=== PATIENT | male | born 1955 | race Caucasian/White ===

== ENCOUNTER 2023-01-24 14:34 | Emergency (ER) | payer MEDICARE, SELFPAY ==
[2023-01-24 14:52] VITALS: BP 138/86; PULSE 81; RESP 16; TEMP 37.3; O2SAT 97
--- NOTE | 2023-01-24 15:09 | ED.GENADULT ---
HPI - General Adult General Chief complaint: Upper Respiratory Infection Stated complaint: Sore Throat/Cough Time Seen by Provider: 01/24/23 15:09 Source: patient, RN notes reviewed and old records reviewed Mode of arrival: ambulatory Limitations: no limitations History of Present Illness HPI narrative: 67-year-old male presents to the [facility] with complaints of a sore throat, cough. Symptoms started 2 days ago. Patient reports that his was seen a couple of days ago tested negative for flu and COVID, patient is declining testing at this time. Denies taking anything for symptoms Onset (ago): day(s) (2) Related Data Home Medications Medication Instructions Recorded Confirmed amlodipine 10 mg tablet 10 mg PO DAILY 01/24/23 01/24/23 atorvastatin 40 mg tablet 40 mg PO DAILY 01/24/23 01/24/23 fluticasone propionate 50 2 spray intranasal DAILY 01/24/23 01/24/23 mcg/actuation nasal spray,suspension glimepiride 2 mg tablet 2 mg PO DAILY 01/24/23 01/24/23 latanoprost 0.005 % eye drops 1 drp EACH EYE DAILY 01/24/23 01/24/23 losartan 100 mg tablet 100 mg PO DAILY 01/24/23 01/24/23 metformin 500 mg tablet,extended 1,000 mg PO DAILY 01/24/23 01/24/23 release 24 hr Allergies Allergy/AdvReac Type Severity Reaction Status Date / Time codeine Allergy Vomiting Verified 01/24/23 15:01 Review of Systems Review of Systems: All systems reviewed & are unremarkable except as noted in HPI and below Constitutional: Constitutional: Reports no additional constitutional complaints Eyes: Eyes: Reports no additional eye complaints ENT: Reports as per HPI and Reports sore throat Cardiovascular: Cardiovascular: Reports no additional cardiovascular complaints, Denies chest pain and Denies dyspnea Respiratory: Respiratory: Reports as per HPI, Denies chest congestion, Reports cough and Denies dyspnea Gastrointestinal: Gastrointestinal: Reports no additional gastrointestinal complaints, Denies abdominal pain, Denies nausea and Denies vomiting Musculoskeletal: Musculoskeletal: Reports no additional musculoskeletal complaints Integumentary/Breasts: Skin/Breast: Reports system reviewed and no additional complaints, except as docu Neurologic: Reports system reviewed and no additional complaints, except as documented Psychiatric: Psychiatric: Reports no additional psychiatric complaints Allergic/Immunologic: Allergic/Immunologic: Reports no additional allergic/immunologic complaints PMFSH Past Medical History Medical History Diabetes High cholesterol History of high blood pressure Comments At the time of my signature, I reviewed and agree with the nursing past medical, surgical, social, and family history. There is no relevant family history pertinent to the patient complaint. Exam Const: General: cooperative, healthy appearing, comfortable, no acute distress, well developed, alert and well nourished Nutritional Appearance: well nourished Orientation/consciousness: patient oriented x3 Limitations: no limitations HENMT: Head: normal to inspection Ears: hearing grossly normal bilaterally, external ears normal, TM's normal bilaterally, EAC's normal, mastoids normal and no periauricular adenopathy Face/Nose/Sinus: Normal external nose present, Normal nares present, Normal nasal mucous membranes and turbinates present, normal facial exam and face symmetric Face and sinus: normal facial exam and face symmetric Mouth: Yes Normal oral and palatal mucosa present, Yes lip normal and Yes moist mucous membranes Throat: posterior oropharynx normal, tonsils normal, uvula midline and postnasal drainage Eyes: General: appearance normal, both eyes and all related structures Alignment and Position: alignment normal Periorbital: periorbital findings normal Pupils: Equal, round and reactive pupils present EOM: EOMs intact bilaterally Neck: Neck: normal visual inspection, full ROM, no
== END 2023-01-24 15:39 | disposition home or self-care (01) ==
PROVIDERS: Emergency Provider Nurse Practitioner
DX: J06.9 Acute upper respiratory infection, unspecified (principal); E11.9 Type 2 diabetes mellitus without complications; Z79.899 Other long term (current) drug therapy; Z79.84 Long term (current) use of oral hypoglycemic drugs
CPT/HCPCS: 99211; G0463

== ENCOUNTER 2023-03-08 13:26 | Emergency (ER) | payer MEDICARE, SELFPAY ==
[2023-03-08 13:34] VITALS: BP 149/66; PULSE 93; RESP 18; TEMP 36.8; O2SAT 96
--- NOTE | 2023-03-08 13:37 | ED.GENADULT ---
HPI - General Adult General Chief complaint: Upper Respiratory Infection Stated complaint: Congestion/Cough Source: patient, RN notes reviewed and old records reviewed Mode of arrival: ambulatory Limitations: no limitations History of Present Illness HPI narrative: 59-year-old male presents to [facility] with complaint of cough, congestion, and sneezing that started 3 days ago. Patient taking Tylenol and using Flonase with no relief. Patient states might have had a fever last night but did not check. Patient denies any other symptoms. MD complaint: cough/congestion Onset (ago): day(s) (3) Related Data Home Medications Medication Instructions Recorded Confirmed amlodipine 10 mg tablet 10 mg PO DAILY 01/24/23 03/08/23 atorvastatin 40 mg tablet 40 mg PO DAILY 01/24/23 03/08/23 fluticasone propionate 50 2 spray intranasal DAILY 01/24/23 03/08/23 mcg/actuation nasal spray,suspension glimepiride 2 mg tablet 2 mg PO DAILY 01/24/23 03/08/23 latanoprost 0.005 % eye drops 1 drp EACH EYE DAILY 01/24/23 03/08/23 losartan 100 mg tablet 100 mg PO DAILY 01/24/23 03/08/23 metformin 500 mg tablet,extended 1,000 mg PO DAILY 01/24/23 03/08/23 release 24 hr Allergies Allergy/AdvReac Type Severity Reaction Status Date / Time codeine Allergy Vomiting Verified 03/08/23 13:41 Review of Systems Constitutional: Constitutional: Reports no additional constitutional complaints, Denies body ache(s), Denies chills, Denies fatigue, Denies fever(s) and Denies headache(s) Eyes: Eyes: Reports no additional eye complaints and Denies blurry vision ENT: Reports system reviewed and no additional complaints, except as documented, Denies vertigo, Denies dizziness, Denies ear discharge, Denies otalgia, Denies facial pain, Denies headache(s), Reports nasal congestion, Reports nasal discharge, Denies sinus pain, Reports sinus pressure and Denies sore throat Cardiovascular: Cardiovascular: Reports no additional cardiovascular complaints, Denies chest pain, Denies chest pain at rest, Denies rapid heart rate and Denies dyspnea Respiratory: Respiratory: Reports no additional respiratory complaints, Reports chest congestion, Reports cough, Denies pain on inspiration, Denies pain with cough and Denies dyspnea Gastrointestinal: Gastrointestinal: Denies abdominal pain, Denies diarrhea, Denies nausea and Denies vomiting Integumentary/Breasts: Skin/Breast: Denies rash Neurologic: Reports system reviewed and no additional complaints, except as documented, Denies vertigo, Denies dizziness and Denies headache(s) Endocrine: Endocrine: Denies fatigue PMFSH Past Medical History Medical History Diabetes High cholesterol History of high blood pressure Comments At the time of my signature, I reviewed and agree with the nursing past medical, surgical, social, and family history. There is no relevant family history pertinent to the patient complaint. Exam Const: General: cooperative, healthy appearing, no acute distress and well nourished Nutritional Appearance: well nourished Orientation/consciousness: patient oriented x3 Limitations: no limitations HENMT: Head: normal to inspection and normocephalic Ears: external ears normal, TM's normal bilaterally, mastoids normal and Abnormal EAC present Face/Nose/Sinus: normal facial exam Face and sinus: normal facial exam Mouth: Yes Normal oral and palatal mucosa present, Yes oropharynx normal and Yes moist mucous membranes Throat: posterior oropharynx normal, tonsils normal, uvula midline, normal tonsils, no peritonsillar masses, normal posterior oropharynx, postnasal drainage and no uvular edema Eyes: General: appearance normal, both eyes and all related structures Sclera: sclerae normal Pupils: Equal, round and reactive pupils present Resp: Effort & Inspection: normal respiratory effort, able to speak in complete sentences, no audible wheezes, no cough, n
== END 2023-03-08 14:05 | disposition home or self-care (01) ==
PROVIDERS: Emergency Provider Registered Nurse; PCP Family Medicine
DX: J10.1 Influenza due to other identified influenza virus with other respiratory manifestations (principal); Z20.822 Contact with and (suspected) exposure to COVID-19; E11.9 Type 2 diabetes mellitus without complications; E78.00 Pure hypercholesterolemia, unspecified; I10 Essential (primary) hypertension
CPT/HCPCS: 87426; 87804; 99213; G0463

== ENCOUNTER 2023-07-01 08:30 | Emergency (ER) | payer MEDICARE, SELFPAY ==
[2023-07-01 08:36] VITALS: BP 143/71; PULSE 88; RESP 20; TEMP 36.7; O2SAT 97
--- NOTE | 2023-07-01 08:44 | ED.SKABFB ---
HPI - Skin/Abscess/Foreign Bdy General Chief complaint: Skin/Abscess/Foreign Body Stated complaint: Insect Bite/Right Leg Source: patient, RN notes reviewed and old records reviewed Mode of arrival: ambulatory Limitations: no limitations History of Present Illness HPI narrative: 68-[facility]-old male to [facility] for complaint of new lesion to right upper inner thigh that he noticed this morning. Patient endorses that he was outdoors doing yard work yesterday. patient denies any known insect bite. Patient denies pertinent medical history, pain, itching , fever. Patient endorses that it was more inflamed this morning and that he squeezed it; patient endorses small amount of fluid excreted. Related Data Home Medications Medication Instructions Recorded Confirmed amlodipine 10 mg tablet 10 mg PO DAILY 01/24/23 07/01/23 atorvastatin 40 mg tablet 40 mg PO DAILY 01/24/23 07/01/23 fluticasone propionate 50 2 spray intranasal DAILY 01/24/23 07/01/23 mcg/actuation nasal spray,suspension glimepiride 2 mg tablet 2 mg PO DAILY 01/24/23 07/01/23 latanoprost 0.005 % eye drops 1 drp EACH EYE DAILY 01/24/23 07/01/23 losartan 100 mg tablet 100 mg PO DAILY 01/24/23 07/01/23 metformin 500 mg tablet,extended 1,000 mg PO DAILY 01/24/23 07/01/23 release 24 hr Allergies Allergy/AdvReac Type Severity Reaction Status Date / Time codeine Allergy Vomiting Verified 03/08/23 13:41 Review of Systems Review of Systems: All systems reviewed & are unremarkable except as noted in HPI and below Constitutional: Constitutional: Reports no additional constitutional complaints Eyes: Eyes: Reports no additional eye complaints ENT: Reports system reviewed and no additional complaints, except as documented Cardiovascular: Cardiovascular: Reports no additional cardiovascular complaints, Denies chest pain and Denies dyspnea Respiratory: Respiratory: Reports no additional respiratory complaints, Denies cough and Denies dyspnea Musculoskeletal: Musculoskeletal: Reports no additional musculoskeletal complaints Integumentary/Breasts: Skin/Breast: Denies pruritus, Reports erythema and Reports skin swelling Comments: patient endorses new lesion to right inner upper thigh Neurologic: Reports system reviewed and no additional complaints, except as documented Psychiatric: Psychiatric: Reports no additional psychiatric complaints PMFSH Past Medical History Medical History Diabetes High cholesterol History of high blood pressure Comments At the time of my signature, I reviewed and agree with the nursing past medical, surgical, social, and family history. There is no relevant family history pertinent to the patient complaint. Exam Const: General: cooperative, healthy appearing, comfortable, no acute distress, alert and well nourished Nutritional Appearance: well nourished Orientation/consciousness: patient oriented x3 Limitations: no limitations HENMT: Head: normal to inspection Ears: external ears normal Face/Nose/Sinus: Normal external nose present, Normal nares present, normal facial exam, No erythema and No edema Face and sinus: normal facial exam, no erythema and no edema Mouth: Yes Normal oral and palatal mucosa present Eyes: General: appearance normal, both eyes and all related structures Neck: Neck: normal visual inspection, full ROM and no meningeal signs Lymphatic: no lymphadenopathy noted and no lymphedema noted Chest: Chest palpation & inspection: normal inspection of the chest Resp: Effort & Inspection: normal respiratory effort and able to speak in complete sentences Auscultation: clear to auscultation bilaterally Cardio: Jugular venous distension: no JVD Rate: regular rate Rhythm: regular rhythm Back/Spine/Pelvis: Cervical Spine: cervical ROM normal Skin: General skin exam: wounds noted Lesions: lesion noted (right upper inner thigh) Trauma: no l
== END 2023-07-01 09:13 | disposition home or self-care (01) ==
PROVIDERS: Emergency Provider Nurse Practitioner Family; PCP Family Medicine
DX: S70.361A Insect bite (nonvenomous), right thigh, initial encounter (principal); W57.XXXA Bitten or stung by nonvenomous insect and other nonvenomous arthropods, initial encounter; E11.9 Type 2 diabetes mellitus without complications; Z79.84 Long term (current) use of oral hypoglycemic drugs; E78.00 Pure hypercholesterolemia, unspecified; I10 Essential (primary) hypertension
CPT/HCPCS: 99213; G0463

== ENCOUNTER 2024-05-18 08:45 | Emergency (ER) | payer MEDICARE, SELFPAY ==
[2024-05-18 08:54] VITALS: BP 154/61; PULSE 72; RESP 20; TEMP 36.5; O2SAT 96
--- OUTSIDE RECORDS SUMMARY | 2024-05-18 09:10 | XMS_ITS | Patient Health Record ---
Author Organization [facility] Address [address] [place], [place] [address] Care Team Providers Care Pet Handler Name Role Phone SHANNAN MERIDA Unavailable [phone] Maurice Sykes Unavailable Unavailable Reason For Referral No Information Medications Medication SIG (Take, Route, Frequency, Duration) Notes Start Date End Date Status Losartan Potassium 100 MG Oral Tablet ORAL losartan potassium 100 MG Oral TabletOriginal Medicationlosartan potassium 100 MG Oral Tablet *Reorder from [facility] for eRx and Interaction Alerts* 10/01/2014 Active amlodipine 10 MG Oral Tablet ORAL amlodipine 10 MG Oral TabletOriginal Medicationamlodipine 10 MG Oral Tablet *Reorder from [facility] for eRx and Interaction Alerts* 10/01/2014 Active 24 HR metformin hydrochloride 750 MG Extended Release Oral Tablet ORAL 24 HR metformin hydrochloride 750 MG Extended Release Oral TabletOriginal [id number] HR metformin hydrochloride 750 MG Extended Release Oral Tablet *Reorder from [facility] for eRx and Interaction Alerts* 10/01/2014 Active Plan Of Treatment No Information Insurance Providers Payer Name Payer Address Payer Phone Subscriber Number Group Number Insured Name Patient Relationship to Insured Coverage Start Date Coverage End Date [facility] ATTN CLAIMS [address] [place] [address] [id number] YARED CARPENTER Self - patient is the insured
--- OUTSIDE RECORDS SUMMARY | 2024-05-18 09:10 | XMS_ITS | Encounter Summary ---
Author Organization [facility] Address [address] [place] [address] Phone Care Team Providers Care Sand Cutter Operator Name Role Phone Maurice Sykes MD Primary Care Provider [phone] Tess Keith MD Unavailable Nicholas Angeles DO Unavailable [phone] Lorena Castellon MD Primary Care Provide r Maurice Griffith MD Unavailable [phone] Bruno Holloway MD Unavailable Sander Dexter MD Unavailable [phone] Encounter Details Date Type Department Care Team (Latest Contact Info) Description 07/30/2019 Orders Only [facility] Scanning, Provider Social History Tobacco Use Types Packs/Day Years Used Date Smoking Tobacco: Former Smokeless Tobacco: Never Alcohol Use Standard Drinks/Week Comments Yes 0 (1 standard drink = 0.6 oz pur e alcohol) 2 [employer]/7up/daily PHQ-2 Answer Date Recorded PHQ-2 Score 0 10/02/2018 Sex and Gender Information Value Date Recorded Sex Assigned at Not on file Legal Sex Male 2:14 PM BUSINESS LIBRARIAN Gender Identity Male 07/05/2022 1:54 PM CDT Sexual Orientation Straight 08/19/2019 11 :27 AM CDT documented as of this encounter Plan of Treatment Not on file documented as of this encounter Procedures Procedure Name Priority Date/Time Associated Diagnosis Comments SCAN - LABS 07/30/2019 documented in this encounter Results * SCAN - LABS (07/30/2019) us Provider Scanning Final Result documented in this encounter Visit Diagnoses Not on filedocumented in this encounter Additional Health Concerns Infection Onset Date Last Indicated Resolved Time COVID: Suspected 02/20/2021 02/20/2021 02/20/2021 8:40 AM BUSINESS LIBRARIAN COVID19 02/20/2021 02/20/2021 03/02/2021 3:05 AM BUSINESS LIBRARIAN COVID: Suspected 02/23/2022 02/23/2022 02/23/2022 11:23 AM BUSINESS LIBRARIAN COVID: Suspected 02/24/2022 02/24/2022 02/24/2022 8:48 AM BUSINESS LIBRARIAN COVID19 02/24/2022 02/24/2022 03/06/2022 3:05 AM BUSINESS LIBRARIAN COVID: Recovered Comment:Added based on recent COVID infection. 03/06/2022 03/15/2022 06/04/2022 3:05 AM C DT documented as of this encounter Care Teams Sand Cutter Operator Relationship Specialty Start Date End Date Maurice Sykes MD PCP - General 05/11/16 07/11/21 Lorena Castellon MD 2 [facility] [address] [address] PCP - General Family Medicine 07/12/21 Tess Keith MD Consulting Physician Medical Oncology 08/05/17 1 Nicholas Angeles DO Surgeon Otolaryngology 08/05/17 01/01/21 Maurice Griffith MD [address] [place] [address] Consulting Physician Ophthalmology 09/06/21 02/20/22 Bruno Holloway MD [address] [place] [address] Surgeon Anesthesiology 09/06/21 Sander Dexter MD [address] [place] [address] Consulting Physician Medical Oncology 02/26/23 documented as of this encounter
--- OUTSIDE RECORDS SUMMARY | 2024-05-18 09:10 | XMS_ITS | Encounter Summary ---
Author Organization [facility] Address [address] [place] [address] Phone Care Team Providers Care Bank Reconciliator Name Role Phone Maurice Sykes MD Primary Care Provider [phone] Tess Keith MD Unavailable Nicholas Angeles DO Unavailable Lorena Castellon MD Primary Care Provide r Maurice Griffith MD Unavailable [phone] Bruno Holloway MD Unavailable Sander Dexter MD Unavailable Encounter Details Date Type Department Care Team (Late st Contact Info) Description 05/24/2017 [facility] Only [facility] ProviderMonroe MD [address] [place] [address] Social History Tobacco Use Types Packs/Day Years Used Date Smoking Tobacco: Former Smokeless Tobacco: Never Alcohol Use Standard Drinks/Week Comments Yes 0 (1 standard drink = 0.6 oz pur e alcohol) Sex and Gender Information Value Date Recorded Sex Assigned at Not on file Legal Sex Male 2:14 PM PROCEDURE ANALYST Gender Identity Male 07/05/2022 1:54 PM CDT Sexual Orientation Straight 08/19/2019 11 :27 AM CDT documented as of this encounter Plan of Treatment Not on file documented as of this encounter Procedures Procedure Name Priority Date/Time Associated Diagnosis Comments DISCHARGE LABORATORY CUMULATIVE REPORT 05/24/2017 12:00 AM CDT documented in this encounter Results * DISCHARGE LABORATORY CUMULATIVE REPORT (05/24/2017 12:00 AM CDT) Narrative 05/24/2017 12:00 AM CDT Ordered by an unspecified provider. us Historical Provider LAB BLOOD ORDERABLES Molly l Result documented in this encounter Visit Diagnoses Not on filedocumented in this encounter Additional Health Concerns Infection Onset Date Last Indicated Resolved Time COVID: Suspected 02/20/2021 02/20/2021 02/20/2021 8:40 AM PROCEDURE ANALYST COVID19 02/20/2021 02/20/2021 03/02/2021 3:05 AM PROCEDURE ANALYST COVID: Suspected 02/23/2022 02/23/2022 02/23/2022 11:23 AM PROCEDURE ANALYST COVID: Suspected 02/24/2022 02/24/2022 02/24/2022 8:48 AM PROCEDURE ANALYST COVID19 02/24/2022 02/24/2022 03/06/2022 3:05 AM PROCEDURE ANALYST COVID: Recovered Comment:Added based on recent COVID infection. 03/06/2022 03/15/2022 06/04/2022 3:05 AM C DT documented as of this encounter Care Teams Bank Reconciliator Relationship Specialty Start Date End Date Maurice Sykes MD PCP - General 05/11/16 07/11/21 Lorena Castellon MD 2 [facility] [address] [address] PCP - General Family Medicine 07/12/21 Tess Keith MD Consulting Physician Medical Oncology 08/05/17 1 Nicholas Angeles DO Surgeon Otolaryngology 08/05/17 01/01/21 Maurice Griffith MD [address] [place] [address] Consulting Physician Ophthalmology 09/06/21 02/20/22 Bruno Holloway MD [address] [place] [address] Surgeon Anesthesiology 09/06/21 Sander Dexter MD [address] [place] [address] Consulting Physician Medical Oncology 02/26/23 documented as of this encounter
--- OUTSIDE RECORDS SUMMARY | 2024-05-18 09:10 | XMS_ITS | Encounter Summary ---
Author Organization [facility] Address [address] [place] [address] Care Team Providers Care Proofer Name Role Phone Lorena Castellon MD Primary Care Provide r Maurice Griffith MD Unavailable [phone] Bruno Holloway MD Unavailable [phone] Sander Dexter MD Unavailable [phone] Encounter Details Date Type Department Care Team (Late st Contact Info) Description 10/12/2021 Telephone [facility] [address] [place] [address] Es Merchant, RT Social History Tobacco Use Types Packs/Day Years Used Date Smoking Tobacco: Former Smokeless Tobacco: Never Alcohol Use Standard Drinks/Week Comments Yes 0 (1 standard drink = 0.6 oz pur e alcohol) 2 [employer]'s/7up/daily AUDIT-C Answer Date Recorded Q1: How often do you have a drink containing alcohol? 4 or more times a week 02/16/2021 Q2: How many drinks containi ng alcohol do you have on a typical day when you are drinking? 1 or 2 Frequency of Binge Drinking Not on file 07/2021 PHQ-2 Answer Date Recorded PHQ-2 Total Score (If total score is 3 or more points, staff should administer the PHQ-9) 0 09/06/2021 Sex and Gender Information Value Date Recorded Sex Assigned at Not on file Legal Sex Male 2:14 PM END TRIMMER Gender Identity Male 07/05/2022 1:54 PM CDT Sexual Orientation Straight 08/19/2019 11 :27 AM CDT documented as of this encounter Plan of Treatment Not on file documented as of this encounter Visit Diagnoses Not on filedocumented in this encounter Additional Health Concerns Infection Onset Date Last Indicated Resolved Time COVID: Suspected 02/23/2022 02/23/2022 02/23/2022 11:23 AM END TRIMMER COVID: Suspected 02/24/2022 02/24/2022 02/24/2022 8:48 AM END TRIMMER COVID19 02/24/2022 02/24/2022 03/06/2022 3:05 AM END TRIMMER COVID: Recovered Comment:Added based on recent COVID infection. 03/06/2022 03/15/2022 06/04/2022 3:05 AM C DT documented as of this encounter Care Teams Proofer Relationship Specialty Start Date End Date Lorena Castellon MD [address] [place] [address] [place] [address] PCP - General Family Medicine 07/12/21 Maurice Griffith MD 2 [facility] [place] [address] Consulting Physician Ophthalmology 09/06/21 02/20/22 Bruno Holloway MD [address] [place] [address] Surgeon Anesthesiology 09/06/21 Sander Dexter MD [address] [place] [address] Consulting Physician Medical Oncology 02/26/23 documented as of this encounter
--- OUTSIDE RECORDS SUMMARY | 2024-05-18 09:10 | XMS_ITS | Encounter Summary ---
Author Organization [facility] Healthcare Address [address] [place] [address] Care Team Providers Care Hollow Core Door Frame Assembler Name Role Phone Lorena Castellon MD Primary Care Provide r Bruno Holloway MD Unavailable Sander Dexter MD Unavailable [phone] Reason for Visit * Reason Onset Date Comments Test Results 04/22/2024 Encounter Details Date Type Department Care Team (Late st Contact Info) Description 04/22/2024 Results Follow-Up [facility] Medical [facility] Primary Care at [address] [address] Lorena Castellon MD [address] [place] [address] Social History Tobacco Use Types Packs/Day Years Used Date Smoking Tobacco: Former Smokeless Tobacco: Never Alcohol Use Standard Drinks/Week Comments Yes 0 (1 standard drink = 0.6 oz pur e alcohol) 2 Se[employer]'s/7up/daily AUDIT-C Answer Date Recorded Q1: How often do you have a drink containing alcohol? Never 05/17/2023 Q2: How many drinks containi ng alcohol do you have on a typical day when you are drinking? Patient does not drink Q3: How often do you have si x or more drinks on one occasion? Never 05/17/2023 PHQ-2 Answer Date Recorded PHQ-2 Total Score (If total score is 3 or more points, staff should administer the PHQ-9) 0 08/27/2023 Sex and Gender Information Value Date Recorded Sex Assigned at Not on file Legal Sex Male 2:14 PM QUALIFICATION ENGINEER Gender Identity Male 07/05/2022 1:54 PM CDT Sexual Orientation Straight 08/19/2019 11 :27 AM CDT documented as of this encounter Miscellaneous Notes * Telephone Encounter - Kristal Claudio - 04/22/2024 12:18 PM CDT Call Back Caller???s Concern: Pt calling back as he missed call from office Relayed message below from Dr Parra and pt had no further questions Does message need to be routed? No * Telephone Encounter - Luciana Desai MA - 04/22/2024 9:43 AM CDT Tried calling patient to inform him of results, if patient returns call please relay providers message. documented in this encounter Plan of Treatment Not on file documented as of this encounter Visit Diagnoses Not on filedocumented in this encounter Care Teams Hollow Core Door Frame Assembler Relationship Specialty Start Date End Date Lorena Castellon MD [address] [place] [address] PCP - General Family Medicine 07/12/21 Bruno Holloway MD [address] [place] [address] Surgeon Anesthesiology 09/06/21 Sander Dexter MD [address] [place] [address] Consulting Physician Medical Oncology 02/26/23 documented as of this encounter
--- OUTSIDE RECORDS SUMMARY | 2024-05-18 09:10 | XMS_ITS | Clinical Summary ---
Author Organization [facility] Address [address] [place] [id number] Care Team Providers Care Director Phone Name Role Phone Lorena Castellon MD Primary Care Provide r Allergies Active Allergy Reactions Criticality Noted Date Comments Codeine Nausea Only,Vomiting 06/20/2023 Reaction: Nausea, Vomiting, Medications atorvastatin (LIPITOR) 40 MG tablet Take 40 mg by mouth daily. 03/05/2023 Active metFORMIN ER (GLUCOPHAGE-XR) 500 MG 24 hr tablet Take 1,000 mg by mouth 2 (two) times daily. Active latanoprost (XALATAN) 0.005 % ophthalmic solution Place 1 drop into both eyes nightly. 05/13/2023 Active glimepiride (AMARYL) 4 MG tablet Take 4 mg by mouth daily. 05/17/2023 Active Problems No known active problems Social History Tobacco Use Types Packs/Day Years Used Date Smoking Tobacco: Never Assessed Sex and Gender Information Value Date Recorded Sex Assigned at Not on file Legal Sex Male 8:01 AM CDT Gender Identity Not on file Sexual Orientation Not on file Plan of Treatment Health Maintenance Due Date Last Done Comments Colorectal Cancer Screening Colonoscopy (10 Years) 1954 Kidney Health Evaluation 1954 Lipid Panel 1954 Diabetes: Retinopathy Eye Exam 1972 Hepatitis C 1972 Annual Medicare Wellness Visit 2019 COVID-19 Vaccine ( season) 2023 12/11/2020, 05/10/2020, 04/12/2020 Hemoglobin A1C 02/12/2024 08/12/2023, 04/12, 11/26/2022, Additional history exists DTaP, Tdap and Td Vaccines (3 - Td or Tdap) 05/25/2027 05/24/2017, 11/02/2008 RSV Immunization or 60+ Years (1 - 1-dose 75+ series) 2029 Zoster Vaccines Completed 12/22/2018, 08/11, 05/10/2015, Additional history exists Pneumococcal Vaccine: 65+ Years Completed 09/10/2022, 05/05/2015, 01/17/2012 Meningococcal B Vaccine Aged Out No l onger eligible based on patient's age to complete this topic Meningococcal Vaccine Aged Out No epifanio corey eligible based on patient's age to complete this topic RSV Immunizations Under 20 Months Aged Out No longer eligible based on patient's age to complete this topic Insurance [employer]ET[employer] Care Teams Director Phone Relationship Specialty Start Date End Date Lorena Castellon MD [address] [address] PCP - General FAMILY PRACTICE 06/20/23
--- OUTSIDE RECORDS SUMMARY | 2024-05-18 09:10 | XMS_ITS | Encounter Summary ---
Author Organization [facility] Address [address] [place] [address] Phone Care Team Providers Care Enterprise Systems Engineer Name Role Phone Maurice Sykes MD Primary Care Provider [phone] Tess Keith MD Unavailable Nicholas Angeles DO Unavailable Lorena Castellon MD Primary Care Provide r Maurice Griffith MD Unavailable Bruno Holloway MD Unavailable Sander Dexter MD Unavailable [phone] Encounter Details Date Type Department Care Team (Late st Contact Info) Description 02/28/2017 Orders Only [facility] ProviderMonroe MD [address] [place] [address] Social History Tobacco Use Types Packs/Day Years Used Date Smoking Tobacco: Never Alcohol Use Standard Drinks/Week Comments Yes 0 (1 standard drink = 0.6 oz pur e alcohol) Sex and Gender Information Value Date Recorded Sex Assigned at Not on file Legal Sex Male 2:14 PM PUPPET MAKER Gender Identity Male 07/05/2022 1:54 PM CDT Sexual Orientation Straight 08/19/2019 11 :27 AM CDT documented as of this encounter Plan of Treatment Not on file documented as of this encounter Procedures Procedure Name Priority Date/Time Associated Diagnosis Comments DISCHARGE LABORATORY CUMULATIVE REPORT 02/28/2017 12:00 AM PUPPET MAKER documented in this encounter Results * DISCHARGE LABORATORY CUMULATIVE REPORT (02/28/2017 12:00 AM PUPPET MAKER) Narrative 02/28/2017 12:00 AM PUPPET MAKER Ordered by an unspecified provider. us Historical Provider LAB BLOOD ORDERABLES Molly l Result documented in this encounter Visit Diagnoses Not on filedocumented in this encounter Additional Health Concerns Infection Onset Date Last Indicated Resolved Time COVID: Suspected 02/20/2021 02/20/2021 02/20/2021 8:40 AM PUPPET MAKER COVID19 02/20/2021 02/20/2021 03/02/2021 3:05 AM PUPPET MAKER COVID: Suspected 02/23/2022 02/23/2022 02/23/2022 11:23 AM PUPPET MAKER COVID: Suspected 02/24/2022 02/24/2022 02/24/2022 8:48 AM PUPPET MAKER COVID19 02/24/2022 02/24/2022 03/06/2022 3:05 AM PUPPET MAKER COVID: Recovered Comment:Added based on recent COVID infection. 03/06/2022 03/15/2022 06/04/2022 3:05 AM C DT documented as of this encounter Care Teams Enterprise Systems Engineer Relationship Specialty Start Date End Date Maurice Sykes MD PCP - General 05/11/16 07/11/21 Lorena Castellon MD [address] [facility] [address] [place] [address] PCP - General Family Medicine 07/12/21 Tess Keith MD Consulting Physician Medical Oncology 08/05/17 1 Nicholas Angeles DO Surgeon Otolaryngology 08/05/17 01/01/21 Maurice Griffith MD [address] [facility] [place] [address] Consulting Physician Ophthalmology 09/06/21 02/20/22 Bruno Holloway MD [address] [place] [address] Surgeon Anesthesiology 09/06/21 Sander Dexter MD [address] [place] [address] Consulting Physician Medical Oncology 02/26/23 documented as of this encounter
--- OUTSIDE RECORDS SUMMARY | 2024-05-18 09:10 | XMS_ITS | Encounter Summary ---
Author Organization [facility] Address [address] [place] [address] Phone Care Team Providers Care Tsa Screener Name Role Phone Maurice Sykes MD Primary Care Provider [phone] Tess Keith MD Unavailable Nicholas Angeles DO Unavailable Lorena Castellon MD Primary Care Provide r Maurice Griffith MD Unavailable Bruno Holloway MD Unavailable Sander Dexter MD Unavailable [phone] Encounter Details Date Type Department Care Team (Latest Contact Info) Description 08/03/2019 Orders Only [facility] Scanning, Provider [...] on file Legal Sex Male 2:14 PM COMMERCIAL AIRPLANE PILOT Gender Identity Male 07/05/2022 1:54 PM CDT Sexual Orientation Straight 08/19/2019 11 :27 AM CDT documented as of this encounter Plan of Treatment Not on file documented as of this encounter Procedures Procedure Name Priority Date/Time Associated Diagnosis Comments SCAN - LABS 08/03/2019 documented in this encounter Results * SCAN - LABS (08/03/2019) us Provider Scanning Final Result documented in this encounter Visit Diagnoses Not on filedocumented in this encounter Additional Health Concerns Infection Onset Date Last Indicated Resolved Time COVID: Suspected 02/20/2021 02/20/2021 02/20/2021 8:40 AM COMMERCIAL AIRPLANE PILOT COVID19 02/20/2021 02/20/2021 03/02/2021 3:05 AM COMMERCIAL AIRPLANE PILOT COVID: Suspected 02/23/2022 02/23/2022 02/23/2022 11:23 AM COMMERCIAL AIRPLANE PILOT COVID: Suspected 02/24/2022 02/24/2022 02/24/2022 8:48 AM COMMERCIAL AIRPLANE PILOT COVID19 02/24/2022 02/24/2022 03/06/2022 3:05 AM COMMERCIAL AIRPLANE PILOT COVID: Recovered Comment:Added based on recent COVID infection. 03/06/2022 03/15/2022 06/04/2022 3:05 AM C DT documented as of this encounter Care Teams Tsa Screener Relationship Specialty Start Date End Date Maurice Sykes MD PCP - General 05/11/16 07/11/21 Lorena Castellon MD 2 [facility] [address] [address] PCP - General Family Medicine 07/12/21 Tess Keith MD Consulting Physician Medical Oncology 08/05/17 1 Nicholas Angeles DO Surgeon Otolaryngology 08/05/17 01/01/21 Maurice Griffith MD [address] [facility] [place] [address] Consulting Physician Ophthalmology 09/06/21 02/20/22 Bruno Holloway MD [address] [place] [address] Surgeon Anesthesiology 09/06/21 Sander Dexter MD [address] [place] [address] Consulting Physician Medical Oncology 02/26/23 documented as of this encounter
--- OUTSIDE RECORDS SUMMARY | 2024-05-18 09:10 | XMS_ITS | Encounter Summary ---
Author Organization [facility] Healthcare Address [address] [place] [address] Care Team Providers Care Information Security Consultant Name Role Phone Lorena Castellon MD Primary Care Provide r Bruno Holloway MD Unavailable [phone] Sander Dexter MD Unavailable [phone] Reason for Visit * Reason Onset Date Comments Medical Question/Miscellaneous 08/28/2023 Encounter Details Date Type Department Care Team (Late st Contact Info) Description 08/28/2023 Telephone [facility] Medical Group Primary Care at [address] [address] Lorena Castellon MD [address] [place] [address] [address] [place] [address] Medical Question/Miscellaneous Social History Tobacco Use Types Packs/Day Years [...] on file Legal Sex Male 2:14 PM LENO SEWER Gender Identity Male 07/05/2022 1:54 PM CDT Sexual Orientation Straight 08/19/2019 11 :27 AM CDT documented as of this encounter Plan of Treatment Not on file documented as of this encounter Visit Diagnoses Not on filedocumented in this encounter Care Teams Information Security Consultant Relationship Specialty Start Date End Date Lorena Castellon MD [address] [facility] [address] PCP - General Family Medicine 07/12/21 Bruno Holloway MD [address] [place] [address] Surgeon Anesthesiology 09/06/21 Sander Dexter MD [address] [place] [address] Consulting Physician Medical Oncology 02/26/23 documented as of this encounter
--- OUTSIDE RECORDS SUMMARY | 2024-05-18 09:11 | XMS_ITS | Encounter Summary ---
Author Organization [facility] Address [address] [place] [address] Phone Care Team Providers Care Casual Shoe Inspector Name Role Phone Maurice Sykes MD Primary Care Provider [phone] Tess Keith MD Unavailable Nicholas Angeles DO Unavailable Lorena Castellon MD Primary Care Provide r Maurice Griffith MD Unavailable [phone] Bruno Holloway MD Unavailable [phone] Sander Dexter MD Unavailable Encounter Details Date Type Department Care Team (Late st Contact Info) Description 04/08/2017 Orders Only [facility] ProviderMonroe MD [address] [place] [address] Social History Tobacco Use Types Packs/Day Years Used Date Smoking Tobacco: Former Smokeless Tobacco: Never Alcohol Use Standard Drinks/Week Comments Yes 0 (1 standard drink = 0.6 oz pur e alcohol) Sex and Gender Information Value Date Recorded Sex Assigned at Not on file Legal Sex Male 2:14 PM ORAL PATHOLOGIST Gender Identity Male 07/05/2022 1:54 PM CDT Sexual Orientation Straight 08/19/2019 11 :27 AM CDT documented as of this encounter Plan of Treatment Not on file documented as of this encounter Procedures Procedure Name Priority Date/Time Associated Diagnosis Comments SURGICAL PATHOLOGY 04/08/2017 12 :00 AM ORAL PATHOLOGIST documented in this encounter Results * SURGICAL PATHOLOGY (04/08/2017 12:00 AM ORAL PATHOLOGIST) Narrative 04/08/2017 12:00 AM ORAL PATHOLOGIST Ordered by an unspecified provider. us Historical Provider LAB PATHOLOGY ORDERABLES Final Result documented in this encounter Visit Diagnoses Not on filedocumented in this encounter Additional Health Concerns Infection Onset Date Last Indicated Resolved Time COVID: Suspected 02/20/2021 02/20/2021 02/20/2021 8:40 AM ORAL PATHOLOGIST COVID19 02/20/2021 02/20/2021 03/02/2021 3:05 AM ORAL PATHOLOGIST COVID: Suspected 02/23/2022 02/23/2022 02/23/2022 11:23 AM ORAL PATHOLOGIST COVID: Suspected 02/24/2022 02/24/2022 02/24/2022 8:48 AM ORAL PATHOLOGIST COVID19 02/24/2022 02/24/2022 03/06/2022 3:05 AM ORAL PATHOLOGIST COVID: Recovered Comment:Added based on recent COVID infection. 03/06/2022 03/15/2022 06/04/2022 3:05 AM C DT documented as of this encounter Care Teams Casual Shoe Inspector Relationship Specialty Start Date End Date Maurice Sykes MD PCP - General 05/11/16 07/11/21 Lorena Castellon MD [address] [facility] [address] [place] [address] PCP - General Family Medicine 07/12/21 Tess Keith MD Consulting Physician Medical Oncology 08/05/17 1 Nicholas Angeles DO Surgeon Otolaryngology 08/05/17 01/01/21 Maurice Griffith MD [address] [facility] [place] [address] Consulting Physician Ophthalmology 09/06/21 02/20/22 Bruno Holloway MD [address] [facility] [place] [address] Surgeon Anesthesiology 09/06/21 Sander Dexter MD [address] [place] [address] Consulting Physician Medical Oncology 02/26/23 documented as of this encounter
--- OUTSIDE RECORDS SUMMARY | 2024-05-18 09:11 | XMS_ITS | Clinical Summary ---
Author Organization [facility] A Address [address] [place] [address] Care Team Providers Care Warhead Maintenance Specialist Name Role Phone Lorena Castellon MD Primary Care Provide r Bruno Holloway MD Unavailable [phone] Sander Dexter MD Unavailable [phone] Allergies Active Allergy Reactions Criticality Noted Date Comments Codeine Nausea only,Vomiting Reaction: Nausea, Vomiting, Medications aspirin 81 mg tabletIndicatio ns:stop 5 days before surgery Take 1 tablet (81 mg total) by mouth daily Active latanoprost (XALATAN) 0.005 % ophthalmic solution INSTILL 1 DROP IN BOTH EYES AT BEDTIME 05/31/2020 Active atorvastatin (LIPITOR) 40 mg tablet TAKE 1 TABLET BY MOUTH EVERY DAY 100 tablet 1 08/27/2023 Active blood-glucose meter kitIndications: Type 2 diabetes mellitus without complication, without long-term current use of insulin ([facility]) Use meter to check glucose sugar daily. E 11.9 1 kit 11/18/2023 Active blood glucose diagnostic stripIndication s:Type 2 diabetes mellitus without complication, without long-term current use of insulin (HCC) Use to test glucose daily E11.9 100 strip 2 11/18/2023 Active lancets misc 100 each by other route as directed 100 each 2 12/17/2023 Active metFORMIN XR (GLUCOPHAGE XR) 500 mg 24 hr tablet TAKE 2 TABLETS BY MOUTH TWICE A DAY 360 tablet 1 12/19/2023 Active Farxiga 5 mg tabletIndicatio ns:Type 2 diabetes mellitus without complication, without long-term current use of insulin (HCC) TAKE 1 TABLET (5 MG TOTAL) BY MOUTH DAILY. 90 tablet 1 02/13/2024 Active losartan (COZAAR) 100 mg tablet TAKE 1 TABLET BY MOUTH EVERY DAY 90 tablet 1 03/03/2024 Active glimepiride (AMARYL) 4 mg tabletIndicatio ns:Type 2 diabetes mellitus without complication, without long-term current use of insulin (HCC) TAKE 1 TABLET BY MOUTH DAILY BEFORE BREAKFAST. 90 tablet 1 03/03/2024 Active amLODIPine (NORVASC) 10 mg tablet TAKE 1 TABLET BY MOUTH EVERY DAY 90 tablet 1 04/13/2024 Active gabapentin (NEURONTIN) 100 mg capsule Take 1 capsule (100 mg total) by mouth 3 (three) times a day 270 capsule 4 05/06/2024 05/07/19 Active Active Problems Problem Noted Date Diagnosed Date Type 2 diabetes mellitus with hyperglycemia 05/2023 Rhinorrhea 12/12/2022 Assessment & Plan (12/12/2022 8:21 AM CDT): New concern Likely allergy induced Recommend zyrtec and flonase F/u prn Tingling of both feet 06/14/2022 Assessment & Plan (05/06/2024 2:11 PM CDT): chronic Stable Start gabapentin 100mg daily and can go up to 3x/day F/u in 6 months Assessment & Plan (06/14/2022 8:27 AM CDT): Worsening B12, tsh, iron panel EMG/NCS Based on results will consider pregabalin at next office visit F/u at annual Encounter for wellness examination 09/06/2021 Assessment & Plan (05/06/2024 1:11 PM CDT): Labs reviewed and discussed Recommend staying up to date on vaccines Colonoscopy: up to date, due 2025 F/u in 1 year for annual Assessment & Plan (09/10/2022 8:29 AM CDT): Labs reviewed and discussed Pcv20: given Colonoscopy: up to date F/u in 1 year for annual Assessment & Plan (09/06/2021 12:14 PM CDT): Ordered CBC, cmp, lipid, hgb a1c, albumin cr urine, TSH, and free t4 Colonoscopy: up to date F/u in 1 year for annual Carpal tunnel syndrome of left wrist 01/18/2021 Overview (01/18/2021): Added automatically from request for surgery [id number] 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 01/19/20 21 Overview (01/18/2021): Added automatically from request for surgery [id number] Carpal tunnel syndrome of right wrist 11/28/2020 Overview (11/28/2020): Added automatically from request for surgery [id number] Entrapment of right ulnar nerve at wrist 021 Overview (11/28/2020): Added automatically from request for surgery [id number] Cubital tunnel syndrome on right 11/28/2020 Overview (11/28/2020): Added automatically from request for surgery [id number] 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, right 11/28 Overview (11/28/2020): Added automatically from request for surgery [id number] History of kidney stones 09/05/2020 History of colonic polyps 08/11/2020 Overview (08/11/2020): Added automatically from request for surgery [id number] MGUS (monoclonal gammopathy of unknown significa nce) 01/29/2019 Assessment & Plan (05/04/2024 3:00 PM CDT): Follows with hematology for management Assessment & Plan (09/05/2022 9:33 AM CDT): Follows with hematology for management Assessment & Plan (09/06/2021 12:11 PM CDT): Follows with hematology for management Elevated PSA 06/27/2018 Overview (06/27/2018): Added automatically from request for surgery [id number] Assessment & Plan (09/06/2021 12:10 PM CDT): PSA ordered Type 2 diabetes mellitus wit hout complication, without long-term current use of insulin 11/15/2016 Assessment & Plan (05/04/2024 2:59 PM CDT): The patient was counseled on a heart-healthy, diabetic-friendly diet, as well as life-style modification. Education provided on the diagnosis and risks of the disease. We will continue to monitor routine labs. Additionally, He was counseled on routine diabetic eye exams, foot exams, and other preventive care. Most recent A1c on file: Lab Results Component Value Date HGBA1C 6.7 (H) 04/21/2024 Goal is <7 Continue regimen of metformin 1000 bid amaryl 4mg daily farxiga 5mg daily Risks and benefits discussed in detail F/u in 3 months Assessment & Plan (08/27/2023 2:19 PM CDT): The patient was counseled on a heart-healthy, diabetic-friendly diet, as well as life-style modification. Education provided on the diagnosis and risks of the disease. We will continue to monitor routine labs. Additionally, He was counseled on routine diabetic eye exams, foot exams, and other preventive care. Most recent A1c on file: Lab Results Component Value Date HGBA1C 8.8 (H) 08/12/2023 Goal is <7 Continue regimen of metformin 1000 bid and amaryl 4mg daily Add farxiga 5mg daily Risks and benefits discussed in detail F/u in 3 months Assessment & Plan (05/17/2023 8:33 AM CDT): The patient was counseled on a heart-healthy, diabetic-friendly diet, as well as life-style modification. Education provided on the diagnosis and risks of the disease. We will continue to monitor routine labs. Additionally, He was counseled on routine diabetic eye exams, foot exams, and other preventive care. Most recent A1c on file: Lab Results Component Value Date HGBA1C 8.8 (H) 05/02/2023 Goal is <7 Continue regimen of metformin 1000 bid and increase the amaryl 4mg daily F/u in 3 months Assessment & Plan (12/12/2022 8:11 AM CDT): The patient was counseled on a heart-healthy, diabetic-friendly diet, as well as life-style modification. Education provided on the diagnosis and risks of the disease. We will continue to monitor routine labs. Additionally, He was counseled on routine diabetic eye exams, foot exams, and other preventive care. Most recent A1c on file: Lab Results Component Value Date HGBA1C 7.5 (H) 11/26/2022 Goal is <7 Continue regimen of metformin 1000 bid and amaryl 2mg daily F/u in 4 months Assessment & Plan (09/05/2022 9:33 AM CDT): The patient was counseled on a heart-healthy, diabetic-friendly diet, as well as life-style modification. Education provided on the diagnosis and risks of the disease. We will continue to monitor routine labs. Additionally, He was counseled on routine diabetic eye exams, foot exams, and other preventive care. Most recent A1c on file: Lab Results Component Value Date HGBA1C 7.6 (H) 08/30/2022 Goal is <7 Continue regimen of metformin 1000 bid and amaryl 2mg daily A1c ordered today Micro/Cr ur ratio ordered F/u at annual Assessment & Plan (06/14/2022 8:28 AM CDT): The patient was counseled on a heart-healthy, diabetic-friendly diet, as well as life-style modification. Education provided on the diagnosis and risks of the disease. We will continue to monitor routine labs. Additionally, He was counseled on routine diabetic eye exams, foot exams, and other preventive care. Most recent A1c on file: Lab Results Component Value Date HGBA1C 7.3 (H) 05/30/2022 Goal is <7 Continue regimen of metformin 1000 bid and amaryl 2mg daily A1c ordered today Micro/Cr ur ratio ordered F/u at annual Assessment & Plan (03/16/2022 8:46 AM CHEMICAL SALES REPRESENTATIVE): The patient was counseled on a heart-healthy, diabetic-friendly diet, as well as life-style modification. Education provided on the diagnosis and risks of the disease. We will continue to monitor routine labs. Additionally, He was counseled on routine diabetic eye exams, foot exams, and other preventive care. Most recent A1c on file:7.7 Goal is <7 Continue regimen of metformin 1000 bid and amaryl 2mg daily A1c ordered today Micro/Cr ur ratio ordered F/u in 3 months Assessment & Plan (12/12/2021 1:21 PM CDT): The patient was counseled on a heart-healthy, diabetic-friendly diet, as well as life-style modification. Education provided on the diagnosis and risks of the disease. We will continue to monitor routine labs. Additionally, He was counseled on routine diabetic eye exams, foot exams, and other preventive care. Most recent A1c on file:8 Goal is <7 Continue regimen of metformin, stop trulicity, start amaryl 2mg daily A1c ordered today Micro/Cr ur ratio ordered F/u in 3 months Assessment & Plan (09/06/2021 12:09 PM CDT): The patient was counseled on a heart-healthy, diabetic-friendly diet, as well as life-style modification. Education provided on the diagnosis and risks of the disease. We will continue to monitor routine labs. Additionally, He was counseled on routine diabetic eye exams, foot exams, and other preventive care. Most recent A1c on file:7.5 Continue regimen of metformin 750mg bid and trulicity 0.75mg A1c ordered today Micro/Cr ur ratio ordered F/u in 3 months Hypertension associated with diabetes 11/15/2016 Assessment & Plan (05/06/2024 1:23 PM CDT): Bp in the office today BP Readings from Last 1 Encounters: 05/06/24 130/62 Continue current regimen of amlodipine 10mg daily and losartan 100mg daily Recommend DASH diet, heart-healthy lifestyle, exercise. Discussed the risks of hypertension. F/u in 6 months Assessment & Plan (08/27/2023 2:19 PM CDT): Bp in the office today BP Readings from Last 1 Encounters: 08/27/23 141/68 Continue current regimen of amlodipine 10mg daily and losartan 100mg daily Recommend DASH diet, heart-healthy lifestyle, exercise. Discussed the risks of hypertension. F/u in 3 months Assessment & Plan (05/17/2023 8:29 AM CDT): Bp in the office today BP Readings from Last 1 Encounters: 05/17/23 124/70 Continue current regimen of amlodipine 10mg daily and losartan 100mg daily Recommend DASH diet, heart-healthy lifestyle, exercise. Discussed the risks of hypertension. F/u in 3 months Assessment & Plan (12/12/2022 8:11 AM CDT): Bp in the office today BP Readings from Last 1 Encounters: 12/12/22 124/76 Continue current regimen of amlodipine 10mg daily and losartan 100mg daily Recommend DASH diet, heart-healthy lifestyle, exercise. Discussed the risks of hypertension. F/u in 4 months Assessment & Plan (09/05/2022 9:33 AM CDT): Bp in the office today BP Readings from Last 1 Encounters: 06/14/22 140/70 Continue current regimen of amlodipine 10mg daily and losartan 100mg daily Recommend DASH diet, heart-healthy lifestyle, exercise. Discussed the risks of hypertension. F/u in 3 months Assessment & Plan (06/13/2022 9:46 PM CDT): Bp in the office today BP Readings from Last 1 Encounters: 03/16/22 140/78 Continue current regimen of amlodipine 10mg daily and losartan 100mg daily Recommend DASH diet, heart-healthy lifestyle, exercise. Discussed the risks of hypertension. F/u in 3 months Assessment & Plan (03/16/2022 9:04 AM CHEMICAL SALES REPRESENTATIVE): Bp in the office today BP Readings from Last 1 Encounters: 03/16/22 140/78 Continue current regimen of amlodipine 10mg daily and losartan 100mg daily Recommend DASH diet, heart-healthy lifestyle, exercise. Discussed the risks of hypertension. F/u in 3 months Assessment & Plan (09/06/2021 12:11 PM CDT): Bp in the office today BP Readings from Last 1 Encounters: 09/06/21 130/80 at goal Continue current regimen of amlodipine 10mg daily and losartan 100mg daily Recommend DASH diet, heart-healthy lifestyle, exercise. Discussed the risks of hypertension. F/u in 3 months Class 1 obesity with serious comorbidity and body mass index (BMI) of 32.0 to 32.9 in adult 06/27/2013 Overview (05/17/2016): OBESITY NOS Assessment & Plan (09/10/2022 8:31 AM CDT): He was counseled on the importance of maintaining a healthy weight and the risks of obesity. Weight loss recommended. Encourage 150min/ week of exercise Encourage 1500 calories in a day for weight loss Hyperlipidemia associated with type 2 diabetes adama almeida 06/27/2013 Overview (05/18/2016): HYPERLIPIDEMIA NEC/NOS Assessment & Plan (05/04/2024 2:59 PM CDT): Stable / clinically quiescent. Will continue to monitor. Continue with atorvastatin 40mg daily Assessment & Plan (09/05/2022 9:32 AM CDT): Stable / clinically quiescent. Will continue to monitor. Continue with atorvastatin 40mg daily Assessment & Plan (09/06/2021 12:12 PM CDT): Stable / clinically quiescent. Will continue to monitor. Continue with atorvastatin 40mg daily Calculus of kidney 08/16/2011 Overview (05/24/2017): Description: s/p 08/01/2011 cystoscopy, right retrograde pyelogram & right ureteral stent placement Resolved Problems Problem Noted Date Diagnosed Date Resolved Date Neck mass 03/11/2017 05/24/2017 Assessment & Plan (04/21/2017 12:19 PM CDT): Patient has done well status post excisional biopsy epidermal inclusion cyst. Operative site is healing well. Additional wound structures were discussed. Patient can follow back up as Assessment & Plan (04/07/2017 7:29 PM CHEMICAL SALES REPRESENTATIVE): Patient's subdermal nodular cystic mass appears to be persistent. Excisional biopsy is indicated. This will be performed today in our office surgical suite. All questions were answered to what appeared to be patient's understanding and satisfaction. After the procedure was explained in full the potential risk, complications, benefits and alternatives patient would like to proceed. Informed consent was obtained. Assessment & Plan (03/11/2017 8:19 AM CHEMICAL SALES REPRESENTATIVE): Patient appears to have a subdermal nodular mass along the tail of the left parotid. I am suspicious this represents a epidermal inclusion cyst. Patient reports a history in which it initially got big and tender and then has gradually got a little smaller. Recommended continued observation for now. Patient will follow back up in 2 weeks. No antibiotics are indicated at this point. No signs of active infection. Should the nodular lesion continue to be there an excisional biopsy will be performed within our office surgical suite. Patient is comfortable with these recommendations. Benign hypertension 06/27/2013 11/16/19 17 Overview (05/18/2016): BENIGN HYPERTENSION Encounters Date Type Department Care Team Description 05/06/2024 1:00 PM CDT Office Visit [facility] at [address] [place] [phone] Lorena Moss MD Encounter for wellness examination (Primary Dx); Hyperlipidemia associated with type 2 diabetes mellitus (HCC); Hypertension associated with diabetes (HCC); Type 2 diabetes mellitus without complication, without long-term current use of insulin (HCC); MGUS (monoclonal gammopathy of unknown significance); Class 1 obesity due to excess calories with serious comorbidity and body mass index (BMI) of 32.0 to 32.9 in adult; Tingling of both feet 05/06/2024 Orders Only [facility] Care at [address] [place] [phone] Lorena Moss MD Controlled diabetes mellitus type 2 with complications, unspecified whether penitentiary insulin use (HCC) (Primary Dx) 04/22/2024 Results Follow-Up [facility] Primary Care at [address] [place] [phone] Lorena Moss MD 04/20/2024 Telephone [facility] Primary Care at [address] [phone] Lorena Moss MD Additional Services Or Orders from Last 3 Months Immunizations Immunization Administration Dates Next Due Influenza, Quadrivalent, Hig h Dose, Preservative Free, Intrr 12/12/2021,03/01/2021,01/23/2020 Influenza, Quadrivalent, Spl it, Preservative Free, Intradermal 11/10/2015 Influenza, Quadrivalent, Spl it, Preservative Free, Intramuscular 12/22/2018,11/29/2017,11/13/2016 Influenza, Split 01/24/2013, 2,12/15/2010,11/17 Influenza, Trivalent, IM (MDV) 01/24/2013 Influenza, Trivalent, Recomb inant, Egg Free, Preservative Free, Antibiotic Free, IM (FLUBLOK) 02/06/2014 Influenza, Unspecified 05/17/2023(Deferred: Roxanne ent Refused) Bloggerce SARS-CoV-2 Monovalent Vaccination (12+ Yrs) PURPLE 12/11/2020,05/10/2020,04/12/2020 Pneumococcal Conjugate PCV 13 05/05/2015 Pneumococcal Conjugate Pcv20 09/10/2022 Pneumococcal Polysaccharide PPV23 01/17/2012 Td, adsorbed 05/24/2017 Tdap 11/02/2008 ZOSTER LIVE 05/10/2015,02/11/2014 ZOSTER Recombinant 12/22/2018,08/28/2018 Surgical History Surgery Date Site/Laterality Comments OTHER SURGICAL HISTORY 02/11/1977 - 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 COLONOSCOPY 06/2015 POLYPECTOMY KIDNEY STONE SURGERY stent placed and removed for kidney PROSTATE BIOPSY benign Medical History Medical History Date Comments Hx Other Medical 1977 brain tumor-ast rocytoma Hx Other Medical urolithiasis Benign prostatic hyperplasia Alex ign prostatic hypertrophy Diabetes mellitus (HCC) Diabetes Hyperlipidemia Hyperlipidemia Hypertension Hypertension Chronic kidney disease Colon polyp Type 2 diabetes mellitus (HCC) Family History Medical History Relation Name Comments Cancer Father Cancer -; Lung cancer Father Cancer -lung; Other Mother Alive and well; Relation Name Status Comments Father Mother Alive Social History Tobacco Use Types Packs/Day Years Used Date Smoking Tobacco: Never Passive Smoke Exposure: Never Smokeless Tobacco: Never Tobacco Cessation:Counseling Given: Not Answered Alcohol Use Standard Drinks/Week Comments Yes 0 [...] points, staff should administer the PHQ-9) 0 05/06/2024 Sex and Gender Information Value Date Recorded Sex Assigned at Not on file Legal Sex Male 2:14 PM CHEMICAL SALES REPRESENTATIVE Gender Identity Male 07/05/2022 1:54 PM CDT Sexual Orientation Straight 08/19/2019 11 :27 AM CDT Obstetrics History Last Filed Vital Signs Vital Sign Reading Time Taken Comments Blood Pressure 130/62 05/06/2024 12:52 PM CDT Pulse 76 05/06/2024 12:52 PM CDT Temperature 36.7 C (98 F) 05/06/2024 12:52 PM CDT Respiratory Rate 18 05/06/2024 12:52 PM CDT Oxygen Saturation 96% 05/06/2024 12:52 PM CDT Inhaled Oxygen Concentration - - Weight 104.3 kg (230 lb) 05/06/2024 12:52 PM CDT Height 180.3 cm (5' 11 ) 05/06/2024 12:52 PM CDT Body Mass Index 32.08 05/06/2024 12:52 PM CDT Plan of Treatment Health Maintenance Due Date Last Done Comments Hepatitis B Screening 1973 Influenza Vaccine (#1) 2024 2, 03/01/2021, 01/23/2020, Additional history exists Postponed from 10/13/2023 (Patient declined, but will receive in the future) Hemoglobin A1C 10/22/2024 04/21/2024, 11/12, 09/24/2023, Additional history exists Albumin Creatinine Ratio, Urine 04/21/2025 04/21/2024, 08/30/2022, 11/30/2021, Additional history exists Lipid Panel 04/21/2025 04/21/2024, 08/12, 11/30/2021, Additional history exists Prostate Cancer Screening-PSA 04/21/2025 04/21/2024, 11/30/2021, 02/13/2021, Additional history exists eGFR 04/21/2025 04/21/2024, 09/11, 02/26/2023, Additional history exists Covid-19 Vaccine () 05/06/2025 12/11/2020, 05/10/2020, 04/12/2020 Postponed from 10/13/2023 (Patient declined, but will receive in the future) Depression Screening 05/06/2025 05/06/2024, 08/27/2023, 05/17/2023, Additional history exists Fall Risk Assessment 05/06/2025 05/06/2024, 08/27/2023, 05/17/2023, Additional history exists Foot Exam 05/06/2025 05/06/2024, 08/12, 12/22/2018, Additional history exists Well Visit 65+ 05/06/2025 05/06/2024, 08/13, 09/06/2021, Additional history exists Colon Cancer Screening-Colonoscopy 09/26/2025 09/26/2020, 06/17/2015, 06/17/2015 Dilated Eye Exam 01/26/2026 01/27/2024, 12/2022, 12/27/2021, Additional history exists DTaP/Tdap/Td Vaccine (3 - Td or Tdap) 05/25/2027 05/24/2017, 11/02/2008 Hepatitis C Screening Completed 05/15/2016, 017 Zoster Vaccine Completed 12/22/2018, 08/11, 05/10/2015, Additional history exists Colon Cancer Screening-CT Colonography Discontinued 09/26/2020, 06/17/2015, 06/17/2015 Colon Cancer Screening-DNA Stool Discontinued 09/26/2020, 06/17/2015, 06/17/2015 Colon Cancer Screening-FIT Discontinued 09/26, 06/17/2015, 06/17/2015 Colon Cancer Screening-Sigmoidoscopy Discontinued 09/26/2020, 06/17/2015, 06/17/2015 Abdominal Aortic Aneurysm (AAA) Screen Completed 10/13/2021 Pneumococcal vaccine 65+ Completed 023, 05/05/2015, 01/17/2012 Procedures Procedure Name Priority Date/Time Associated Diagnosis Comments PSA SCREEN Routine 04/21/2024 7:14 AM CDT Healthcare maintenance ALBUMIN CREATININE RATIO, URINE Routine 04/21/2024 7:14 AM CDT Type 2 diabetes mellitus with hyperglycemia, without long-term current use of insulin (HCC) CBC WITH AUTO DIFFERENTIAL Routine 04/21/2024 7:14 AM CDT Healthcare maintenance COMPREHENSIVE METABOLIC PANEL Routine 04/21/2024 7:14 AM CDT Healthcare maintenance LIPID PANEL Routine 04/21/2024 7:14 AM CDT Healthcare maintenance HEMOGLOBIN A1C Routine 04/21/2024 7:14 AM CDT Healthcare maintenance THYROID FUNCTION CASCADE Routine 04/21/2024 7:14 AM CDT Healthcare maintenance HM DIABETES EYE EXAM Routine 01/27/2024 US ABDOMINAL AORTIC ANEURYSM SCREENING Schedule Routine, Read Routine (OP Routine) 10/13/2021 8:45 AM CDT Encounter for abdominal aortic aneurysm (AAA) screening COLONOSCOPY 09/26/2020 9:13 AM CDT SERUM HEPATITIS C AB Routine 05/15/2016 1:20 PM CDT HM DIABETES FOOT EXAM Routine 05/15/2016 from Last 3 Months or Most Recently Relevant to Health Maintenance Results * Thyroid Function [place] (04/21/2024 7:14 AM CDT) TSH 0.54 0.40 - 4.50 mIU/L [facility] Blood 04/21/2024 7:14 AM CDT 04/21/2024 7:15 AM CDT Narrative [facility] - 04/22/2024 5:21 AM CDT FASTING:YES FASTING: YES Lorena Castellon MD LAB BLOOD ORDERABLES Final Result Performing Organization Address [facility] de Phone Number [employer] [address] [facility] [place] [address] * PSA screen (04/21/2024 7:14 AM CDT) PSA 2.21 < OR = 4.00 ng/mL [facility] Comment: The total PSA value from this assay system is standardized against the WHO standard. The test result will be approximately 20% lower when compared to the equimolar-standardized total PSA (Joana Jhonny). Comparison of serial PSA results should be interpreted with this fact in mind. This test was performed using the Siemens chemiluminescent method. Values obtained from different assay methods cannot be used interchangeably. PSA levels, regardless of value, should not be interpreted as absolute evidence of the presence or absence of disease. Blood 04/21/2024 7:14 AM CDT 04/21/2024 7:15 AM CDT Narrative [facility] - 04/22/2024 5:21 AM CDT FASTING:YES FASTING: YES Lorena Castellon MD LAB BLOOD ORDERABLES Final Result Performing Organization Address [facility] Co de Phone Number [employer] [address] [place] [address] * (ABNORMAL) CBC with auto differential (04/21/2024 7:14 AM CDT) [facility] WBC 4.8 3.8 - 10.8 Thousand/u L [facility] RBC, POC 5.34 4.20 - 5.80 Million/uL [facility] Hgb 16.3 13.2 - 17.1 g/dL [facility] Hct 50.2(H) 38.5 - 50.0 % [facility] MCV 94.0 80.0 - 100.0 fL [facility] MCH 30.5 27.0 - 33.0 pg [facility] MCHC 32.5 32.0 - 36.0 g/dL [facility] Comment: For adults, a slight decrease in the calculated MCHC value (in the range of 30 to 32 g/dL) is most likely not clinically significant; however, it should be interpreted with caution in correlation with other red cell parameters and the patient's clinical condition. Rdw 12.5 11.0 - 15.0 % [facility] Platelets 197 140 - 400 Thousand/u L [facility] MPV 8.9 7.5 - 12.5 fL [facility] Neutrophils, abs 2,650 1,500 - 7,800 cells/uL [facility] Lymphocytes, abs 1,402 850 - 3,900 cells/uL [facility] Monocyte abs 557 200 - 950 cells/uL [facility] Eosinophils, abs 163 15 - 500 cells/uL [facility] Basophils, abs 29 0 - 200 cells/uL [facility] Neutrophils 55.2 % [facility] Lymphocyte pct 29.2 % [facility] Monocytes 11.6 % [facility] Eosinophils 3.4 % [facility] Basophils 0.6 % [facility] Blood 04/21/2024 7:14 AM CDT 04/21/2024 7:15 AM CDT Narrative [facility] - 04/22/2024 5:21 AM CDT FASTING:YES FASTING: YES us Lorena Castellon MD LAB BLOOD ORDERABLES Final Result Performing Organization Address [facility] de Phone Number [facility] [address] [place] [address] * (ABNORMAL) Albumin Creatinine Ratio, Urine (04/21/2024 7:14 AM CDT) Creatinine, ur 74 20 - 320 mg/dL [facility] Microalbumin, ur 4.5 See Note: mg/dL [facility] Comment: Reference Range: Reference Range Not established Microalbumin/creat ratio 61(H) <30 mg/g creat [facility] Comment: The ADA defines abnormalities in albumin excretion as follows: Albuminuria Category Result (mg/g creatinine) Normal to Mildly increased <30 Moderately increased 30-299 Severely increased > OR = 300 The ADA recommends that at least two of three specimens collected within a 3-6 month period be abnormal before considering a patient to be within a diagnostic category. Urine 04/21/2024 7:14 AM CDT 04/21/2024 7:15 AM CDT Narrative [facility] - 04/22/2024 5:21 AM CDT FASTING:YES FASTING: YES us Lorena Castellon MD LAB URINE ORDERABLES Final Result Performing Organization Address [facility] de Phone Number [facility] [address] [place] [address] * (ABNORMAL) Hemoglobin A1c (04/21/2024 7:14 AM CDT) Hgb A1C 6.7(H) <5.7 % of total Hgb [facility] Comment: For someone without known diabetes, a hemoglobin A1c value of 6.5% or greater indicates that they may have diabetes and this should be confirmed with a follow-up test. For someone with known diabetes, a value <7% indicates that their diabetes is well controlled and a value greater than or equal to 7% indicates suboptimal control. A1c targets should be individualized based on duration of diabetes, age, comorbid conditions, and other considerations. Currently, no consensus exists regarding use of hemoglobin A1c for diagnosis of diabetes for children. Blood 04/21/2024 7:14 AM CDT 04/21/2024 7:15 AM CDT Narrative [facility] - 04/22/2024 5:21 AM CDT FASTING:YES FASTING: YES Lorena Castellon MD LAB BLOOD ORDERABLES Final Result [facility] [address] [place] [address] * Lipid panel (04/21/2024 7:14 AM CDT) Pathologist [facility] Cholesterol 103 <200 mg/dL [facility] HDL 55 > OR = 40 mg/dL [facility] Triglycerides 57 <150 mg/dL [facility] LDL 35 mg/dL (calc) [facility] Comment: Reference range: <100 Desirable range <100 mg/dL for primary prevention; <70 mg/dL for patients with CHD or diabetic patients with > or = 2 CHD risk factors. LDL-C is now calculated using the Amarjit-Macedo calculation, which is a validated novel method providing better accuracy than the Friedewald equation in the estimation of LDL-C. Amarjit SS et al. SOILA. 2013;310(19): 3416-5613 (http://education.[employer].Mixbook/faq/BZM017) Chol/HDL ratio 1.9 <5.0 (calc) [facility] Non-HDL, (LDL+VLDL) 48 <130 mg/dL (calc) [facility] Comment: For patients with diabetes plus 1 major ASCVD risk factor, treating to a non-HDL-C goal of <100 mg/dL (LDL-C of <70 mg/dL) is considered a therapeutic option. Blood 04/21/2024 7:14 AM CDT 04/21/2024 7:15 AM CDT Narrative [facility] - 04/22/2024 5:21 AM CDT FASTING:YES FASTING: YES us Lorena Castellon MD LAB BLOOD ORDERABLES Final Result [facility] [address] [place] [address] * (ABNORMAL) Comprehensive metabolic panel (04/21/2024 7:14 AM CDT) Glucose 149(H) 65 - 99 mg/dL [facility] Comment: Fasting reference interval For someone without known diabetes, a glucose value >125 mg/dL indicates that they may have diabetes and this should be confirmed with a follow-up test. BUN 17 7 - 25 mg/dL [facility] Creatinine 0.72 0.70 - 1.28 mg/dL [facility] eGFR 98 > OR = 60 mL/min/1.7 3m2 [facility] BUN/creat ratio SEE NOTE: 6 - 22 (calc) [facility] Comment: Not Reported: BUN and Creatinine are within reference range. Sodium 138 135 - 146 mmol/L [facility] Potassium, pl 4.2 3.5 - 5.3 mmol/L [facility] Chloride 104 98 - 110 mmol/L [facility] CO2 27 20 - 32 mmol/L [facility] Calcium 9.6 8.6 - 10.3 mg/dL [facility] Protein, sr 7.0 6.1 - 8.1 g/dL [facility] Albumin 4.4 3.6 - 5.1 g/dL [facility] GLOBULIN 2.6 1.9 - 3.7 g/dL (calc) [facility] Alb/glob ratio 1.7 1.0 - 2.5 (calc) [facility] Bilirubin, total 0.8 0.2 - 1.2 mg/dL [facility] Alk phos 57 35 - 144 U/L [facility] AST 25 10 - 35 U/L [facility] ALT (SGPT) 33 9 - 46 U/L [facility] Blood 04/21/2024 7:14 AM CDT 04/21/2024 7:15 AM CDT Narrative [facility] - 04/22/2024 5:21 AM CDT FASTING:YES FASTING: YES Lorena Castellon MD LAB BLOOD ORDERABLES Final Result [facility] [address] [facility] [place] [address] * DIABETES EYE EXAM (01/27/2024) SCRIBED DIABETIC DILATED EYE EXAM Normal 01/27/2024 Historical Provider HEALTH MAINTENANCE Final Result * US Abdominal Aortic Aneurysm Screening (10/13/2021 8:45 AM CDT) Anatomical Region Laterality Modality Abdomen Ultrasound 10/13/2021 10:3 5 AM CDT Narrative 10/13/2021 10:36 AM CDT EXAM DESCRIPTION: US ABDOMINAL AORTIC ANEURYSM SCREENING REASON FOR STUDY: aaa screening TECHNIQUE: Grayscale images acquired of the aorta and stored on PACS. Selected color Doppler and spectral images recorded. COMPARISON: Correlation with CT abdomen and pelvis 08/01/2011 FINDINGS: AORTIC CALIBER MAXIMAL PROXIMAL: 2.2 x 2.7 cm. MID: 2.1 x 2.1 cm. DISTAL: 2.2 x 2.2 cm. ILIAC DIAMETER RIGHT: 1.3 x 1.4 cm. LEFT: 1.5 x 1.2 cm. OTHER: No other significant finding. IMPRESSION: No abdominal aortic aneurysm. REFERENCE: Please see below follow up recommendations for abdominal aortic aneurysm surveillance per Society for Vascular Surgery Guidelines: < 2.6 cm No follow up necessary 2.62.9 cm Recommended ultrasound follow up every 5 years 3.0-3.4 cm Recommended ultrasound follow up every 3 years 3.5-3.9 cm Recommended ultrasound follow up every 12 months 4.0-4.9 cm Recommended ultrasound follow up every 12 months, vascular surgery consult 5.0-5.4 cm Recommended ultrasound follow up every 6 months, vascular surgery consult >= 5.5 cm Referral to vascular surgeon Based upon Society for Vascular Surgery Guidelines: J Vasc Surgery 2009 Oct 50: [id number]; updated Feb 2017 J Vasc Surgery 67:277 THIS IS AN ELECTRONICALLY VERIFIED FINAL REPORT 10/13/2021 10:36 AM - Electronically signed by Prince GO JR Report ID: [id number] Reading Location: [id number] Procedure Note Prince Quintero MD - 10/13/2021 EXAM DESCRIPTION: US ABDOMINAL AORTIC ANEURYSM SCREENING REASON FOR STUDY: aaa screening TECHNIQUE: Grayscale images acquired of the aorta and stored on PACS.Selected color Doppler and spectral images recorded. COMPARISON: Correlation with CT abdomen and pelvis 08/01/2011 FINDINGS: AORTIC CALIBER MAXIMAL PROXIMAL: 2.2 x 2.7 cm. MID: 2.1 x 2.1 cm. DISTAL: 2.2 x 2.2 cm. ILIAC DIAMETER RIGHT: 1.3 x 1.4 cm. LEFT: 1.5 x 1.2 cm. OTHER: No other significant finding. IMPRESSION: No abdominal aortic aneurysm. REFERENCE: Please see below follow up recommendations for abdominal aortic aneurysm surveillance per Society for Vascular Surgery Guidelines: < 2.6 cm No follow up necessary 2.62.9 cm Recommended ultrasound follow up every 5 years 3.0-3.4 cm Recommended ultrasound follow up every 3 years 3.5-3.9 cm Recommended ultrasound follow up every 12 months 4.0-4.9 cm Recommended ultrasound follow up every 12 months, vascularsurgery consult 5.0-5.4 cm Recommended ultrasound follow up every 6 months, vascularsurgery consult >= 5.5 cm Referral to vascular surgeon Based upon Society for Vascular Surgery Guidelines: J Vasc Surgery 2008Oct 50: [email or web address]; updated Feb 2017 J Vasc Surgery 67:277 THIS IS AN ELECTRONICALLY VERIFIED FINAL REPORT 10/13/2021 10:36 AM - Electronically signed by Prince GO JR Report ID: [id number] Reading Location: [id number] Lorena Castellon MD [facility] PROCEDURES Fin al Result * COLONOSCOPY (09/26/2020 9:13 AM CDT) Anatomical Region Laterality Modality Other Narrative Procedure Note Khai Stevens MD - 09/26/2020 9:13 AM CDT [facility] Patient Name: Mayank Beaulieu Procedure Date: 09/26/2020 9:13 AM Date of : 1955 Admit Type: Outpatient Age: 65 Gender: Male Attending MD: Khai Stevens M.D. Room: [facility] ENDOSCOPY ROOM 2 Note Status: Finalized Patient Profile: Refer to note in patient chart for documentation of history and physical. Procedure: Colonoscopy Indications: High risk colon cancer surveillance: Personalhistory of colonic polyps, Last colonoscopy: June 2015 Referring MD: Maurice Sykes M.D. Providers: Khai Stevens M.D. Impression: - Hemorrhoids found on perianal exam. - One 6 mm polyp in the descending colon, removedwith a hot biopsy forceps. Resected and retrieved. - The examination was otherwise normal. Recommendation: - Discharge patient to home. - Resume previous diet. - Continue present medications. - Await pathology results. - Repeat colonoscopy in 5 years for surveillance. - Return to primary care physician as previously scheduled. Medicines: Propofol per Anesthesia Complications: No immediate complications. Estimated Blood Loss: Estimated blood loss: none. Procedure: Pre-Anesthesia Assessment: - This assessment was completed [Time ofAssessment] prior to the administration of sedation. The benefits, risks and alternatives of theprocedure and sedation were discussed and informed consentwas obtained. All questions were answered. Please referto the signed informed consent document in the medical record. The bowel preparation used was Miralax and bisacodyl tablets via single dose instruction. The scope was passed under direct vision. TheColonoscope [id number] was introduced through the anus and advanced to the the cecum, identified by appendiceal orifice and ileocecal valve. The colonoscopy was performed without difficulty. The patient tolerated the procedure well. The qualityof the bowel preparation was excellent. Findings: Hemorrhoids were found on perianal exam. A 6 mm polyp was found in the descending colon. The polyp wassessile. The polyp was removed with a hot biopsy forceps. Resection andretrieval were complete. Verification of patient identification for thespecimen was done by the physician and nurse using the patient's name andbirth date. Estimated blood loss was minimal. The exam was otherwise without abnormality. Electronically signed by Khai Stevens M.D. Khai Stevens M.D. 09/26/2020 10:15:05 AM Number of Addenda: 0 Note Initiated On: 09/26/2020 9:13 AM Procedure Code(s): --- Professional --- 79595, Colonoscopy, flexible; with removal of tumor(s), polyp(s), or other lesion(s) by hot biopsy forceps Diagnosis Code(s): --- Professional --- K63.5, Polyp of colon K64.9, Unspecified hemorrhoids Z86.010, Personal history of colonic polyps CPT copyright 2019 [employer] [place]. All rights reserved. The codes documented in this report are preliminary and upon chief inspector reviewmay be revised to meet current compliance requirements. Recognized by the [place] [employer] for promoting quality in endoscopy Khai Stevens MD ENDOSCOPY PROCEDURES Final Re sult * Serum Hepatitis C ab (05/15/2016 1:20 PM CDT) HCV ab NON-REACTI VE NON-REACTI VE CDR HISTORICAL RESULTS Hepatitis signal to cutoff ratio 0.02 <1.00 CDR HISTORICAL RESULTS Serum 05/15/2016 1:20 PM CDT Historical Provider LAB BLOOD ORDERABLES Molly l Result CDR HISTORICAL RESULTS * DIABETES FOOT EXAM (05/15/2016) Diabetic Foot Exam Unknown Historical Provider HEALTH MAINTENANCE Final Result from Last 3 Months or Most Recently Relevant to Health Maintenance Insurance [facility] MEDICARE [facility] Address: [address] [address] [place] [address] [facility]IC[facility] SUPPLEMENT INSURANCE [facility] Advance Directives For more information, please contact: [phone] * Full Code (Latest Code Status on File) Date Activated Date Inactivated Comments 09/26/2020 8:49 AM 09/26/2020 3:09 PM * Full Code Date Activated Date Inactivated Comments 09/26/2020 8:49 AM 09/26/2020 8:49 AM Care Teams Warhead Maintenance Specialist Relationship Specialty Start Date End Date Lorena Castellon MD [address] [facility] [place] [address] PCP - General Family Medicine 07/12/21 Bruno Holloway MD [address] [place] [address] Surgeon Anesthesiology 09/06/21 Sander Dexter MD [address] [place] [address] Consulting Physician Medical Oncology 02/26/23
--- OUTSIDE RECORDS SUMMARY | 2024-05-18 09:11 | XMS_ITS | Referral Summary ---
Author Organization [facility] Medical Office Building A Address [address] [place] [address] Care Team Providers Care Electric Truck Operator Name Role Phone Lorena Castellon MD Primary Care Provide r Bruno Holloway MD Unavailable [phone] Sander Dexter MD Unavailable Encounters Date Type Department Care Team Description 05/06/2024 Orders Only [facility] Medical [facility] Primary Care at [address] [phone] Lorena Moss MD Controlled diabetes mellitus type 2 with complications, unspecified whether long-term insulin use (HCC) (Primary Dx) 05/06/2024 1:00 PM CDT Office Visit [facility] Primary Care at [address] [phone] Lorena Moss MD Encounter for wellness examination [...] 32.9 in adult; Tingling of both feet 04/22/2024 Results Follow-Up [facility] Primary Care at [address] [place] [phone] Lorena Moss MD 04/20/2024 Telephone [facility] Primary Care at [address] [place] [phone] Lorena Moss MD Additional Services Or Orders from Last 3 Months Allergies Active Allergy Reactions Criticality Noted Date [...] complication, without long-term current use of insulin ([facility]) Use meter to check glucose sugar daily. E 11.9 1 kit 11/18/2023 Active blood glucose diagnostic stripIndication s:Type 2 diabetes mellitus without complication, without long-term current use of insulin ([facility]) Use to test glucose daily E11.9 100 strip 2 11/18/2023 Active lancets misc 100 each by other route as directed 100 each 2 12/17/2023 Active metFORMIN XR (GLUCOPHAGE XR) 500 mg 24 hr tablet TAKE 2 TABLETS BY MOUTH TWICE A DAY 360 tablet 1 12/19/2023 Active Farxiga 5 mg tabletIndicatio ns:Type 2 diabetes mellitus without complication, without long-term current use of insulin ([facility]) TAKE 1 TABLET (5 MG TOTAL) BY MOUTH DAILY. 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 01/19/20 Overview (01/18/2021): Added automatically from request for surgery [id number] Carpal tunnel syndrome of right wrist 11/28/2020 Overview (11/28/2020): Added automatically from request for surgery [id number] Entrapment of right ulnar nerve at wrist 021 Overview (11/28/2020): Added automatically from request for surgery [id number] Cubital tunnel syndrome on right 11/28/2020 Overview (11/28/2020): Added automatically from request for surgery [id number] 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, right 11/28 Overview (11/28/2020): Added automatically from request for surgery [id number] History of kidney stones 09/05/2020 History of colonic polyps 08/11/2020 Overview (08/11/2020): Added automatically from request for surgery [id number] MGUS (monoclonal gammopathy of unknown significa nce) 01/29/2019 Assessment & Plan (05/04/2024 3:00 PM CDT): Follows with hematology for management Assessment & Plan (09/05/2022 9:33 AM CDT): Follows with hematology for management Assessment & Plan (09/06/2021 12:11 PM CDT): Follows with hematology for management Elevated PSA 06/27/2018 Overview (06/27/2018): Added automatically from request for surgery [id number] Assessment & Plan (09/06/2021 12:10 PM CDT): [...] annual Assessment & Plan (03/16/2022 8:46 AM COMSEC MANAGER): The patient was counseled on a heart-healthy, [...] months Assessment & Plan (03/16/2022 9:04 AM COMSEC MANAGER): Bp in the office today BP Readings [...] as Assessment & Plan (04/07/2017 7:29 PM COMSEC MANAGER): Patient's subdermal nodular cystic mass appears to [...] obtained. Assessment & Plan (03/11/2017 8:19 AM COMSEC MANAGER): Patient appears to have a subdermal nodular [...] 06/27/2013 11/16/19 17 Overview (05/18/2016): BENIGN HYPERTENSION Immunizations Immunization Administration Dates Next Due Influenza, Quadrivalent, Hig h Dose, Preservative Free, Intrr 12/12/2021,03/01/2021,01/23/2020 Influenza, Quadrivalent, Spl it, Preservative Free, Intradermal 11/10/2015 Influenza, Quadrivalent, Spl it, Preservative Free, Intramuscular 12/22/2018,11/29/2017,11/13/2016 Influenza, Split 01/24/2013, 2,12/15/2010,11/17 Influenza, Trivalent, IM (MDV) 01/24/2013 Influenza, Trivalent, Recomb inant, Egg Free, Preservative Free, Antibiotic Free, IM (FLUBLOK) 02/06/2014 Influenza, Unspecified 05/17/2023(Deferred: Roxanne ent Refused) [place] SARS-CoV-2 Monovalent Vaccination (12+ Yrs) PURPLE 12/11/2020,05/10/2020,04/12/2020 Pneumococcal Conjugate PCV 13 05/05/2015 Pneumococcal Conjugate Pcv20 09/10/2022 Pneumococcal Polysaccharide PPV23 01/17/2012 Td, adsorbed 05/24/2017 Tdap 11/02/2008 ZOSTER LIVE 05/10/2015,02/11/2014 ZOSTER Recombinant 12/22/2018,08/28/2018 Social History Tobacco Use Types Packs/Day Years [...] on file Legal Sex Male 2:14 PM COMSEC MANAGER Gender Identity Male 07/05/2022 1:54 PM CDT Sexual Orientation Straight 08/19/2019 11 :27 AM CDT Last Filed Vital Signs Vital Sign Reading [...] 05/06/2024 12:52 PM CDT Plan of Treatment Not on file Procedures Procedure Name Priority Date/Time Associated Diagnosis [...] Routine 04/21/2024 7:14 AM CDT Healthcare maintenance DIABETES EYE EXAM Routine 01/27/2024 US ABDOMINAL AORTIC ANEURYSM SCREENING Schedule Routine, Read Routine (OP Routine) 10/13/2021 8:45 AM CDT Encounter for abdominal aortic aneurysm (AAA) screening COLONOSCOPY 09/26/2020 9:13 AM CDT SERUM HEPATITIS C AB Routine 05/15/2016 1:20 PM CDT DIABETES FOOT EXAM Routine 05/15/2016 from Last 3 Months or Most Recently Relevant to Health Maintenance Results * Thyroid Function [place] (04/21/2024 7:14 AM CDT) TSH 0.54 0.40 - 4.50 mIU/L [facility] Blood 04/21/2024 7:14 AM CDT 04/21/2024 7:15 AM CDT Narrative [facility] - 04/22/2024 5:21 AM CDT FASTING:YES FASTING: YES Lorena Castellon MD LAB BLOOD ORDERABLES Final Result [facility] [address] [place] [address] * PSA screen (04/21/2024 7:14 AM CDT) PSA 2.21 < OR = 4.00 ng/mL [facility] Comment: The total PSA value [...] LAB BLOOD ORDERABLES Final Result [facility] [address] [address] * (ABNORMAL) CBC with auto differential (04/21/2024 7:14 AM CDT) WBC 4.8 3.8 - 10.8 Thousand/u L [...] LAB BLOOD ORDERABLES Final Result [facility] [address] [place] [address] * (ABNORMAL) Albumin Creatinine Ratio, Urine (04/21/2024 7:14 AM CDT) Pathologist [facility] Creatinine, ur 74 20 - 320 mg/dL [...] FASTING:YES FASTING: YES Lorena Castellon MD LAB URINE ORDERABLES Final Result [facility] [address] [address] * (ABNORMAL) Hemoglobin A1c (04/21/2024 7:14 AM CDT) Hgb A1C 6.7(H) <5.7 % of total Hgb [facility] Comment: For someone without known diabetes, [...] MD LAB BLOOD ORDERABLES Final Result [facility] [address] [place] [address] * Lipid panel (04/21/2024 7:14 AM CDT) Cholesterol 103 <200 mg/dL [facility] [...] factors. LDL-C is now calculated using the Ab calculation, which is a validated novel method providing better accuracy than the Friedewald equation in the estimation of LDL-C. Amarjit MARTINEZ et al. SOILA. 2013;310(19): 6979-7279 (http://education.nLife Therapeutics/faq/QEG585) Chol/HDL ratio 1.9 <5.0 (calc) [facility] [...] MD LAB BLOOD ORDERABLES Final Result [facility] [address] [place] [address] * (ABNORMAL) Comprehensive metabolic panel (04/21/2024 7:14 [...] LAB BLOOD ORDERABLES Final Result [facility] [address] [place] [address] * DIABETES EYE EXAM (01/27/2024) SCRIBED DIABETIC [...] for Vascular Surgery Guidelines: J Vasc Surgery 2008 50: s2s49; updated Feb 2017 J Vasc Surgery 67:277 THIS IS AN ELECTRONICALLY VERIFIED FINAL REPORT 10/13/2021 10:36 AM - Electronically signed by Prince Quintero M.D. JR: Report ID: [id number] Reading Location: [id number] Procedure Note Prince Quintero MD - 10/13/2021 [...] for Vascular Surgery Guidelines: J Vasc Surgery 2009Oct 50: s2s49; updated Feb 2017 J Vasc Surgery 67:277 THIS IS AN ELECTRONICALLY VERIFIED FINAL REPORT 10/13/2021 10:36 AM - Electronically signed by Prince Quintero M.D. JR: Report ID: [id number] Reading Location: [place] [address] [place] Lorena Castellon MD IMG US PROCEDURES Fin al Result * COLONOSCOPY (09/26/2020 9:13 AM CDT) Anatomical Region Laterality Modality Other Narrative Procedure Note Khai Stevens MD - 09/26/2020 9:13 AM CDT [facility] Patient Name: Mayank Beaul[place] Procedure Date: 09/26/2020 9:13 AM Date of : 1955 Admit Type: Outpatient Age: 65 Gender: Male Attending MD: Khai Stevens M.D. Room: [facility] ENDOSCOPY ROOM 2 Note Status: Finalized Patient [...] scope was passed under direct vision. TheColonoscope [id number] was introduced through the anus and advanced [...] 9:13 AM Procedure Code(s): --- Professional --- 39819, Colonoscopy, flexible; with removal of tumor(s), polyp(s), or other lesion(s) by hot biopsy forceps Diagnosis Code(s): --- Professional --- K63.5, Polyp of colon K64.9, Unspecified hemorrhoids Z86.010, Personal history of colonic polyps CPT copyright 2019 [employer]. All rights reserved. The codes documented in this report are preliminary and upon medical administrative specialist reviewmay be revised to meet current compliance requirements. Recognized by the [employer] for promoting quality in endoscopy Khai Stevens MD ENDOSCOPY PROCEDURES Final Re sult * Serum Hepatitis C ab (05/15/2016 1:20 PM CDT) Pathologist [facility] HCV ab NON-REACTI VE NON-REACTI VE CDR HISTORICAL RESULTS Hepatitis signal to cutoff ratio 0.02 <1.00 CDR HISTORICAL RESULTS Serum 05/15/2016 1:20 PM CDT Historical Provider LAB BLOOD ORDERABLES Molly l Result CDR HISTORICAL RESULTS * DIABETES FOOT EXAM (05/15/2016) Pathologist [facility] Diabetic Foot Exam Unknown Historical Provider HEALTH MAINTENANCE Final Result from Last 3 Months or Most Recently Relevant to Health Maintenance [facility] MEDICARE [facility] MEDICARE SUPPLEMENT INSURANCE [facility] Advance Directives For more information, please contact: [phone] * Full Code (Latest Code Status on File) Date Activated Date Inactivated Comments 09/26/2020 8:49 AM 09/26/2020 3:09 PM * Full Code Date Activated Date Inactivated Comments 09/26/2020 8:49 AM 09/26/2020 8:49 AM Care Teams Electric Truck Operator Relationship Specialty Start Date End Date Lorena Castellon MD [address] [place] [address] PCP - General Family Medicine 07/12/21 Bruno Holloway MD [address] [place] [address] Surgeon Anesthesiology 09/06/21 Sander Dexter MD [address] [place] [address] Consulting Physician Medical Oncology 02/26/23
[2024-05-18 09:42] LABS: EDSTREPNEGPOS1 Negative (Negative)
--- NOTE | 2024-05-18 11:47 | ED_ITS ---
HPI - URI/Sore Throat General Chief Complaint: Upper Respiratory Infection Stated Complaint: Sore Throat/Runny Nose/Cough Source: patient and RN notes reviewed Mode of arrival: ambulatory Limitations: no limitations History of Present Illness HPI Narrative: 69-year-old male presents expressed her complaint of upper respiratory symptoms x1 day. Patient reports having a sore throat and pain with swallowing. He de nies any chest pain, difficulty breathing, difficulty swallowing, fevers, chills, congestion, or runny nose, ear pain. He reports his spouse has the same symptoms. Significant past medical history includes diabetes. Related Data Home Medications ?Medication ?Instructions ?Recorded ?Confirmed ?Last Taken ?Type amlodipine 10 mg tablet 10 mg PO DAILY 01/24/23 07/01/23 Unknown History atorvastatin 40 mg tablet 40 mg PO DAILY 01/24/23 07/01/23 Unknown History fluticasone propionate 50 2 spray intranasal DAILY 01/24/23 07/01/23 Unknown History mcg/actuation nasal spray,suspension glimepiride 2 mg tablet 2 mg PO DAILY 01/24/23 07/01/23 Unknown History latanoprost 0.005 % eye drops 1 drp EACH EYE DAILY 01/24/23 07/01/23 Unknown History losartan 100 mg tablet 100 mg PO DAILY 01/24/23 07/01/23 Unknown History metformin 500 mg tablet,extended 1,000 mg PO DAILY 01/24/23 07/01/23 Unknown History release 24 hr Allergies Allergy/AdvReac Type Severity Reaction Status Date / Time codeine Allergy Vomiting Verified 03/08/23 13:41 Review of Systems Review of Systems: CONSTITUTIONAL: Denies fever, chills, or sweats. EYES: Denies visual changes, redness, or discharge. ENT: Denies rhinorrhea, congestion, difficulty swallowing, or otalgia. Positive for sore throat. CARDIOVASCULAR: Denies chest pain, palpitations, or edema. RESPIRATORY: Denies cough or dyspnea. GASTROINTESTINAL: Denies abdominal pain, nausea, vomiting, or diarrhea. GENITOURINARY: Denies dysuria or hematuria. SKIN: Denies rash or itching. MUSCULOSKELETAL: Denies back pain, joint pain, or myalgia. NEUROLOGIC: Denies headache, numbness, or weakness. PSYCHIATRIC: Denies anxiety or depression. All other systems reviewed are negative, except as documented in HPI. COUNTS INCLUDE 234 BEDS AT THE [facility] Past Medical History Medical History Diabetes High cholesterol History of high blood pressure Comments At the time of my signature, I reviewed and agree with the nursing past medical, surgical, social, and family history. There is no relevant family history pertinent to the patient complaint. Exam Narrative: GENERAL: This is a well-nourished, well-developed adult, in no apparent distress. They are non ill-appearing, nontoxic appearing. HEAD: normocephalic, atraumatic. EYES: Sclera clear/white. Vision is grossly intact. EARS: External ears normal, auditory canals clear and without drainage, TMs normal without perforation. Hearing grossly intact. NOSE: External nose normal with no obvious nasal discharge, nares with redness, no rhinorrhea. THROAT: Mucous membranes moist, posterior pharynx with mild erythema and postnasal drip. Uvula midline NECK: Neck supple, non-tender without lymphadenopathy, masses or thyromegaly. CARDIOVASCULAR: Regular rate and rhythm without murmurs, gallops, or rubs. RESPIRATORY: Clear to auscultation. Breath sounds equal bilaterally. No wheezes, rales, or rhonchi. SKIN: warm, Dry, intact with no suspicious lesions or rash, good texture and turgor. NEURO: awake, alert, and oriented to person, place and time. There were no obvious focal neurologic abnormalities. EXTREMITIES: No joint tenderness, effusion, or edema noted. Course Course Emergency Course: Patient is aware of diagnosis, understands and agrees to treatment plan. Anticipatory guidance given. Patient agrees to follow-up as directed and is aware of reasons to seek care at the emergency department. Portions of this record may have been created with voice recognition software Level of Care: Express Care Visit Vital Signs Vital signs: Vital Signs Temperature 97.7 F 05/18/24 08:54 Pulse Rate 72 05/18/24 08:54 Respiratory Rate 20 05/18/24 08:54 Blood Pressure 154/61 H 05/18/24 08:54 Pulse Oximetry 96 05/18/24 08:54 Oxygen Delivery Room Air 05/18/24 08:54 Temperature 97.7 F 05/18/24 08:54 Pulse Rate 72 05/18/24 08:54 Respiratory Rate 20 05/18/24 08:54 Blood Pressure 154/61 H 05/18/24 08:54 Pulse Oximetry 96 05/18/24 08:54 Oxygen Delivery Room Air 05/18/24 08:54 Reviewed MDM - URI/Sore Throat MDM Narrative Medical decision making narrative: Rapid strep was negative. A culture will be sent off and the patient will be contacted if it is positive for strep and will be placed on antibiotics at that time. His symptoms are likely consistent with a viral illness. [id number] treatment and duration of illness was discussed with the patient. Discussed physical exam findings. Advised supportive measures and signs/symptoms to go to the ER. Pt is appropriate for outpt treatment and f/u. Differential Diagnosis Differential diagnosis: Likely upper respiratory infection, viral infection and pharyngitis Lab Data Attestation: I reviewed the patient's lab results. Labs: Lab Results 05/18/24 Range/Units 09:02 POC Grp A Strep Screen Negative (Negative) Critical Care Time Critical Care Time Critical Care Time: No Discharge Plan Discharge Clinical Impression: Upper respiratory infection Qualifiers: URI type: unspecified viral URI Qualified Code(s): J06.9 - Acute upper respiratory infection, unspecified Patient Disposition: Home Condition: Stable Instructions: Upper Respiratory Infection (DC) Additional Instructions: your rapid strep swab was negative today at [facility]. You will be notified in a few days if the culture comes back positive for strep, and appropriate antibiotics will be called in for you at that time. your symptoms are likely due to a viral illness, which is not treated with antibiotics. Viral symptoms can be present for up to 10-14 days. Take Tylenol or ibuprofen for fever or pain. Rest and stay hydrated. Follow up with your PCP in 5 days if symptoms are not improving. Go to the ER immediately if you difficulty breathing or swallowing Your blood pressure was elevated above 120/80 today at urgent care. This puts you above the threshold for follow-up. Please schedule a follow-up with your personal physician as soon as possible for further evaluation and treatment even blood pressures exceeding 120/80 may indicate pre-hypertension. Patient Language: Kinyarwanda Prescriptions: No Action latanoprost 0.005 % drops 1 drp EACH EYE DAILY atorvastatin 40 mg tablet 40 mg PO DAILY glimepiride 2 mg tablet 2 mg PO DAILY amlodipine 10 mg tablet 10 mg PO DAILY losartan 100 mg tablet 100 mg PO DAILY fluticasone propionate 50 mcg/actuation spray,suspension 2 spray INTRANASAL DAILY metformin 500 mg tablet extended release 24 hr 1,000 mg PO DAILY Follow-up/Referrals: PHYSICIAN NOT ON STAFF,NONSTAFF [Primary Care Provider] - Time of Disposition: 10:03
== END 2024-05-18 10:14 | disposition home or self-care (01) ==
DX: J06.9 Acute upper respiratory infection, unspecified (principal); E11.9 Type 2 diabetes mellitus without complications; Z79.84 Long term (current) use of oral hypoglycemic drugs; E78.00 Pure hypercholesterolemia, unspecified; I10 Essential (primary) hypertension
CPT/HCPCS: 87081; 87880; 99213; G0463